=== PATIENT | female | born 2000 | race Caucasian/White ===

== ENCOUNTER 2024-12-25 19:08 | Emergency (ER) | payer OTHER ==
[~2024-12-25] VITALS: Ht 167.6 cm; Wt 85.0 kg
[2024-12-25 19:10] VITALS: TEMP 36.9; O2SAT 96
[2024-12-25 23:34] VITALS: BP 134/84; PULSE 118; RESP 18
[2024-12-25] MEDS: HYDROCODONE/ACETAMINOPHEN 5/325MG TABLET PO ONE (23:34)
[2024-12-25] MEDS ORDERED: HYDR-4001 MT (23:42)
== END 2024-12-26 | disposition home or self-care (01) ==
LOC: EDBD 19:08 → ER 19:08
DX: S82.402A Unspecified fracture of shaft of left fibula, initial encounter for closed fracture (principal); F32.A Depression, unspecified; Z79.899 Other long term (current) drug therapy; V89.2XXA Person injured in unspecified motor-vehicle accident, traffic, initial encounter; Y93.89 Activity, other specified; Y92.89 Other specified places as the place of occurrence of the external cause; Y99.8 Other external cause status
CPT/HCPCS: 73610; 29515; 99283; Z7610